=== PATIENT | male | born 1960 | race Caucasian/White ===

== ENCOUNTER → 2020-03-23 | Outpatient (CLI) | payer OTHER | LOC: CT 13:00 | DX: C20 Malignant neoplasm of rectum (principal); Z71.2 Person consulting for explanation of examination or test findings; Z98.890 Other specified postprocedural states | CPT/HCPCS: Q9967 ==

== ENCOUNTER → 2020-10-26 | Outpatient (CLI) | payer OTHER | LOC: CT 13:00 | DX: C20 Malignant neoplasm of rectum (principal); Z71.2 Person consulting for explanation of examination or test findings; Z51.11 Encounter for antineoplastic chemotherapy; K80.80 Other cholelithiasis without obstruction | CPT/HCPCS: 71260; Q9967 ==

== ENCOUNTER → 2021-06-02 | Outpatient (CLI) | payer MEDICARE | LOC: CT 05-22 13:00 | DX: C20 Malignant neoplasm of rectum (principal); Z71.2 Person consulting for explanation of examination or test findings; Z98.890 Other specified postprocedural states; N13.30 Unspecified hydronephrosis | CPT/HCPCS: Q9967 ==

== ENCOUNTER → 2021-11-16 | Outpatient (CLI) | payer MEDICARE | LOC: CT 14:00 | DX: C20 Malignant neoplasm of rectum (principal); Z71.2 Person consulting for explanation of examination or test findings | CPT/HCPCS: Q9967 ==